=== PATIENT | female | born 1995 | race Caucasian/White ===

== ENCOUNTER 2018-09-29 16:58 | Emergency (ER) | payer SELFPAY ==
[2018-09-29] MEDS ORDERED: Azithromycin 250 MG Tab PO ONE (18:44)
[2018-09-29] MEDS ORDERED: Ketorolac 60 MG/2 ML SDV IM ONE (18:44)
[2018-09-29] MEDS ORDERED: cefTRIAXone 500 MG in Lidocaine 1% 1 ML IM ONE (18:44)
--- NOTE | 2018-09-29 18:55 | EDM.PDOC ---
ED HPI GENERAL MEDICAL PROBLEM - General Chief Complaint: Back Pain or Injury Stated Complaint: LOW BACK PAIN AND OTHER ISSUES Time Seen by Provider: 09/29/18 18:30 Source of Information: Reports: Patient History Limitations: Reports: No Limitations - History of Present Illness INITIAL COMMENTS - FREE TEXT/NARRATIVE: History of present illness: []Patient's had one week of brownish discharge, pelvic pain and pain with urination. She is unsure if she is . She denies any previous STDs. No fevers, chills, nausea, vomiting or diarrhea Review of systems: As per history of present illness and below otherwise all systems reviewed and negative. Past medical history: As per history of present illness and as reviewed below otherwise noncontributory. Surgical history: As per history of present illness and as reviewed below otherwise noncontributory. Social history: No reported history of drug or alcohol abuse. Family history: As per history of present illness and as reviewed below otherwise noncontributory. Physical exam: General: Well developed, well nourished in NAD HEENT: Atraumatic, normocephalic, pupils reactive, negative for conjunctival pallor or scleral icterus, mucous membranes moist, throat clear, neck supple, nontender, trachea midline. Lungs: Clear to auscultation, breath sounds equal bilaterally, chest nontender. Heart: S1S2, regular, negative for clicks, rubs, or JVD. Abdomen: NABS, Soft, nondistended, nontender. Negative for masses or hepatosplenomegaly. Negative for costovertebral tenderness. No vertebral tenderness to palpation on her lower spine Pelvis: Stable nontender. Genitourinary: mild amount of brownish discharge, severe cervical motion tenderness on exam Rectal: Deferred. Extremities: Atraumatic, negative for cords or calf pain. Neurovascular unremarkable. Neuro: Awake, alert, oriented. Cranial nerves II through XII unremarkable. Cerebellum unremarkable. Motor and sensory unremarkable throughout. Exam nonfocal. Skin:warm and dry Diagnostics: Urine, hCG, GC chlamydia and wet prep done Therapeutics: Toradol, ceftriaxone, Zithromax given ED Course: unremarkable Impression: PID Prescriptions: tramadol 50 mg, 16 tablets Plan: Follow with primary care or women's health clinic take meds as directed return if symptoms worsen or change. Definitive disposition and diagnosis as appropriate pending reevaluation and review of above. lower back Pain Score (Numeric/FACES): 8 - Related Data Allergies Allergy/AdvReac Type Severity Reaction Status Date / Time No Known Allergies Allergy Verified 09/29/18 17:49 Home Meds: Home Meds traMADol HCl [Tramadol HCl] 50 mg PO Q6H PRN #16 tablet 09/29/18 [Rx] Past Medical History - Past Health History Medical/Surgical History: Denies Medical/Surgical History Social & Family History - Family History Family Medical History: Noncontributory Oncologic: Reports: Bladder, Breast, Cervix - Tobacco Use Smoking Status *Q: Never Smoker Second Hand Smoke Exposure: No - Caffeine Use Caffeine Use: Reports: Coffee - Recreational Drug Use Recreational Drug Use: No ED ROS GENERAL - Review of Systems Review Of Systems: ROS reveals no pertinent complaints other than HPI. ED EXAM, RENAL/ - Physical Exam Exam: See Below (See history of present illness) Course - Vital Signs Last Recorded V/S: Last Vital Signs Temp 98.4 F 09/29/18 17:47 Pulse 68 09/29/18 17:47 Resp 16 09/29/18 17:47 BP 120/60 09/29/18 17:47 Pulse Ox 98 09/29/18 17:47 - Orders/Labs/Meds Orders: Active Orders 24 hr Category Date Time Status CHLAMYDIA AND GONORRHEA BY TMA Stat Lab 09/29/18 18:45 Received Labs: Laboratory Tests 09/29/18 09/29/18 09/29/18 Range/Units 17:53 17:53 18:45 Urine Color YELLOW Urine Appearance CLEAR Urine pH 5.5 (5.0-8.0) Ur Specific [place] >= 1.030 (1.001-1.035) Urine Protein NEGATIVE (NEGATIVE) mg/dL Urine Glucose (UA) NEGATIVE (NEGATIVE) mg/dL Urine Ketones TRACE H (NEGATIVE) mg/dL Urine Occult Blood NEGATIVE (NEGATIVE) Urine Nitrite NEGATIVE (NEGATIVE) Urine Bilirubin NEGATIVE (NEGATIVE) Urine Urobilinogen 0.2 (<2.0) EU/dL Ur Leukocyte Esterase NEGATIVE (NEGATIVE) Urine HCG, Qual NEGATIVE (NEGATIVE) Neena species DNA NEGATIVE (NEGATIVE) Gardnerella DNA Probe NEGATIVE (NEGATIVE) Trichomonas DNA Probe NEGATIVE (NEGATIVE) Meds: Medications Discontinued Medications Generic Name Dose Route Start Last Admin Trade Name Freq PRN Reason Stop Dose Admin Azithromycin 1,000 mg 09/29/18 18:44 09/29/18 18:58 Zithromax PO 09/29/18 18:45 1,000 mg Q24H ONE Administration Ceftriaxone Sodium 500 mg/ 1 mls @ 1 mls/sec 09/29/18 18:44 09/29/18 19:00 Lidocaine HCl IM 09/29/18 18:45 1 mls/sec ONETIME ONE Administration Ketorolac Tromethamine 60 mg 09/29/18 18:44 09/29/18 19:00 Toradol IM 09/29/18 18:45 60 mg ONETIME ONE Administration Departure - Departure Time of Disposition: 19:42 Disposition: Home, Self-Care 01 Condition: Good Clinical Impression: Pelvic inflammatory disease - Discharge Information *PRESCRIPTION DRUG MONITORING PROGRAM REVIEWED*: No *COPY OF PRESCRIPTION DRUG MONITORING REPORT IN PATIENT MAGDALENO: No Prescriptions: traMADol HCl [Tramadol HCl] 50 mg PO Q6H PRN #16 tablet PRN Reason: Pain Referrals: PCP,None [Primary Care Provider] - Forms: ED Department Discharge Additional Instructions: The following information is given to patients seen in the emergency department who are being discharged to home. This information is to outline your options for follow-up care. We provide all patients seen in our emergency department with a follow-up referral. The need for follow-up, as well as the timing and circumstances, are variable depending upon the specifics of your emergency department visit. If you don't have a primary care physician on staff, we will provide you with a referral. We always advise you to contact your personal physician following an emergency department visit to inform them of the circumstance of the visit and for follow-up with them and/or the need for any referrals to a consulting specialist. The emergency department will also refer you to a specialist when appropriate. This referral assures that you have the opportunity for follow-up care with a specialist. All of these measure are taken in an effort to provide you with optimal care, which includes your follow-up. Under all circumstances we always encourage you to contact your private physician who remains a resource for coordinating your care. When calling for follow-up care, please make the office aware that this follow-up is from your recent emergency room visit. If for any reason you are refused follow-up, please contact the [facility] Emergency Department at and asked to speak to the emergency department charge nurse. Take meds as directed, follow up with your primary care physician, return to ER if symptoms worsen or change. [facility] [address] [place] [id number] [facility] Primary Care - Women's Health [address] [place] [id number] - My Orders Last 24 Hours: My Active Orders 09/29/18 18:45 CHLAMYDIA AND GONORRHEA BY TMA Stat - Assessment/Plan Last 24 Hours: My Active Orders 09/29/18 18:45 CHLAMYDIA AND GONORRHEA BY TMA Stat
== END 2018-09-29 20:19 | disposition home or self-care (01) ==
LOC: MW.ED 16:58
DX: N73.9 Female pelvic inflammatory disease, unspecified (principal)
CPT/HCPCS: 81003; 81025; 87480; 87491; 87510; 87591; 87660; 96372; 99283; A9270; J0696; J1885; J2001

== ENCOUNTER 2019-06-20 15:51 | Emergency (ER) | payer OTHER ==
[2019-06-20] MEDS ORDERED: Sodium Chloride 0.9% 10 ML Syringe FLUSH PRN (15:56)
[2019-06-20] MEDS ORDERED: Sodium Chloride 0.9% 2.5 ML Syringe FLUSH PRN (15:56)
[2019-06-20] MEDS ORDERED: Sodium Chloride 0.9% 1,000 ML IV ONE (15:56)
--- NOTE | 2019-06-20 16:13 | EDM.PDOC ---
<Saba Keene - Last Filed: 06/20/19 19:38> ED HPI GENERAL MEDICAL PROBLEM - General Stated Complaint: VOMITING Time Seen by Provider: 06/20/19 16:13 - Related Data Allergies Allergy/AdvReac Type Severity Reaction Status Date / Time No Known Allergies Allergy Verified 06/20/19 16:08 Home Meds: Home Meds Diclofenac Sodium [Voltaren] 75 mg PO BIDMEALS PRN #20 tab.cr 06/20/19 [Rx] Ondansetron HCl [Zofran] 4 mg PO Q4HR #12 tablet 06/20/19 [Rx] Course - Vital Signs Last Recorded V/S: Last Vital Signs Temp 97.5 F 06/20/19 19:12 Pulse 82 06/20/19 19:54 Resp 16 06/20/19 19:54 BP 111/69 06/20/19 19:54 Pulse Ox 98 06/20/19 19:54 - Orders/Labs/Meds Orders: Active Orders 24 hr Category Date Time Status CHLAMYDIA AND GONORRHEA BY TMA Stat Lab 06/20/19 18:00 Received Saline Lock Insert [OM.PC] Stat Oth 06/20/19 15:56 Ordered Labs: Laboratory Tests 06/20/19 06/20/19 06/20/19 Range/Units 16:15 16:15 16:17 WBC 11.14 H (4.0-11.0) K/uL RBC 4.73 (4.30-5.90) M/uL Hgb 15.3 (12.0-16.0) g/dL Hct 43.9 (36.0-46.0) % MCV 92.8 (80.0-98.0) fL MCH 32.3 H (27.0-32.0) pg MCHC 34.9 (31.0-37.0) g/dL RDW Std Deviation 41.1 (28.0-62.0) fl RDW Coeff of Maykel 12 (11.0-15.0) % Plt Count 195 (150-400) K/uL MPV 10.80 (7.40-12.00) fL Neut % (Auto) 86.6 H (48.0-80.0) % Lymph % (Auto) 5.3 L (16.0-40.0) % [place] % (Auto) 7.5 (0.0-15.0) % Eos % (Auto) 0.5 (0.0-7.0) % Baso % (Auto) 0.1 (0.0-1.5) % Neut # (Auto) 9.6 H (1.4-5.7) K/uL Lymph # (Auto) 0.6 (0.6-2.4) K/uL [place] # (Auto) 0.8 (0.0-0.8) K/uL Eos # (Auto) 0.1 (0.0-0.7) K/uL Baso # (Auto) 0.0 (0.0-0.1) K/uL Nucleated RBC % 0.0 /100WBC Nucleated RBCs # 0 K/uL Sodium 139 (136-145) mmol/L Potassium 3.8 (3.5-5.1) mmol/L Chloride 104 (98-107) mmol/L Carbon Dioxide 21.1 (21.0-32.0) mmol/L BUN 14 (7.0-18.0) mg/dL Creatinine 0.6 (0.6-1.0) mg/dL Est Cr Clr Drug Dosing 139.38 mL/min Estimated GFR (MDRD) > 60.0 ml/min Glucose 91 (74-106) mg/dL Calcium 9.2 (8.5-10.1) mg/dL Total Bilirubin 0.6 (0.2-1.0) mg/dL AST 20 (15-37) IU/L ALT 17 (14-63) IU/L Alkaline Phosphatase 64 (46-116) U/L Total Protein 8.6 H (6.4-8.2) g/dL Albumin 4.4 (3.4-5.0) g/dL Globulin 4.2 H (2.6-4.0) g/dL Albumin/Globulin Ratio 1.1 (0.9-1.6) Lipase 110 (73-393) U/L Urine Color YELLOW Urine Appearance SLT CLOUDY Urine pH 5.5 (5.0-8.0) Ur Specific [place] >= 1.030 (1.001-1.035) Urine Protein NEGATIVE (NEGATIVE) mg/dL Urine Glucose (UA) NEGATIVE (NEGATIVE) mg/dL Urine Ketones >=80 (NEGATIVE) mg/dL Urine Occult Blood TRACE-INTACT H (NEGATIVE) Urine Nitrite NEGATIVE (NEGATIVE) Urine Bilirubin SMALL H (NEGATIVE) Urine Ictotest NEGATIVE Urine Urobilinogen 0.2 (<2.0) EU/dL Ur Leukocyte Esterase NEGATIVE (NEGATIVE) Urine RBC 0-3 (0-2/HPF) Urine WBC 0-3 (0-5/HPF) Ur Epithelial Cells OCCASIONAL (NONE-FEW) Urine Bacteria 3+ H (NEGATIVE) Urine Mucus MODERATE (NONE-MOD) Urine HCG, Qual (NEGATIVE) Neena species DNA (NEGATIVE) Gardnerella DNA Probe (NEGATIVE) Trichomonas DNA Probe (NEGATIVE) 06/20/19 06/20/19 Range/Units 16:17 18:00 WBC (4.0-11.0) K/uL RBC (4.30-5.90) M/uL Hgb (12.0-16.0) g/dL Hct (36.0-46.0) % MCV (80.0-98.0) fL MCH (27.0-32.0) pg MCHC (31.0-37.0) g/dL RDW Std Deviation (28.0-62.0) fl RDW Coeff of Maykel (11.0-15.0) % Plt Count (150-400) K/uL MPV (7.40-12.00) fL Neut % (Auto) (48.0-80.0) % Lymph % (Auto) (16.0-40.0) % [place] % (Auto) (0.0-15.0) % Eos % (Auto) (0.0-7.0) % Baso % (Auto) (0.0-1.5) % Neut # (Auto) (1.4-5.7) K/uL Lymph # (Auto) (0.6-2.4) K/uL [place] # (Auto) (0.0-0.8) K/uL Eos # (Auto) (0.0-0.7) K/uL Baso # (Auto) (0.0-0.1) K/uL Nucleated RBC % /100WBC Nucleated RBCs # K/uL Sodium (136-145) mmol/L Potassium (3.5-5.1) mmol/L Chloride (98-107) mmol/L Carbon Dioxide (21.0-32.0) mmol/L BUN (7.0-18.0) mg/dL Creatinine (0.6-1.0) mg/dL Est Cr Clr Drug Dosing mL/min Estimated GFR (MDRD) ml/min Glucose (74-106) mg/dL Calcium (8.5-10.1) mg/dL Total Bilirubin (0.2-1.0) mg/dL AST (15-37) IU/L ALT (14-63) IU/L Alkaline Phosphatase (46-116) U/L Total Protein (6.4-8.2) g/dL Albumin (3.4-5.0) g/dL Globulin (2.6-4.0) g/dL Albumin/Globulin Ratio (0.9-1.6) Lipase (73-393) U/L Urine Color Urine Appearance Urine pH (5.0-8.0) Ur Specific [place] (1.001-1.035) Urine Protein (NEGATIVE) mg/dL Urine Glucose (UA) (NEGATIVE) mg/dL Urine Ketones (NEGATIVE) mg/dL Urine Occult Blood (NEGATIVE) Urine Nitrite (NEGATIVE) Urine Bilirubin (NEGATIVE) Urine Ictotest Urine Urobilinogen (<2.0) EU/dL Ur Leukocyte Esterase (NEGATIVE) Urine RBC (0-2/HPF) Urine WBC (0-5/HPF) Ur Epithelial Cells (NONE-FEW) Urine Bacteria (NEGATIVE) Urine Mucus (NONE-MOD) Urine HCG, Qual NEGATIVE (NEGATIVE) Neena species DNA NEGATIVE (NEGATIVE) Gardnerella DNA Probe NEGATIVE (NEGATIVE) Trichomonas DNA Probe NEGATIVE (NEGATIVE) Meds: Medications Discontinued Medications Generic Name Dose Route Start Last Admin Trade Name Abdirahmanq PRN Reason Stop Dose Admin Azithromycin 1,000 mg 06/20/19 18:04 06/20/19 18:11 Zithromax PO 06/20/19 18:05 1,000 mg Q24H ONE Administration Sodium Chloride 1,000 mls @ 999 mls/hr 06/20/19 15:56 06/20/19 16:26 Normal Saline IV 06/20/19 16:56 999 mls/hr .Bolus ONE Administration Ceftriaxone Sodium/Dextrose 1 50 mls @ 100 mls/hr 06/20/19 18:04 06/20/19 18: 11 gm/ Premix IV 06/20/19 18:33 100 mls/hr ONETIME ONE Administration Ketorolac Tromethamine 30 mg 06/20/19 18:07 06/20/19 18:12 Toradol IVPUSH 06/20/19 18:08 30 mg ONETIME ONE Administration Ondansetron HCl 4 mg 06/20/19 16:18 06/20/19 16:26 Zofran IVPUSH 06/20/19 16:19 4 mg ONETIME ONE Administration Sodium Chloride 10 ml 06/20/19 15:56 06/20/19 16:26 Saline Flush FLUSH 10 ml ASDIRECTED PRN Administration Keep Vein Open Sodium Chloride 2.5 ml 06/20/19 15:56 06/20/19 16:26 Saline Flush FLUSH 2.5 ml ASDIRECTED PRN Administration Keep Vein Open Departure - Departure Time of Disposition: 19:38 Disposition: Home, Self-Care 01 Clinical Impression: PID (acute pelvic inflammatory disease) - Discharge Information Prescriptions: Ondansetron HCl [Zofran] 4 mg PO Q4HR #12 tablet Diclofenac Sodium [Voltaren] 75 mg PO BIDMEALS PRN #20 tab.cr PRN Reason: Pain Instructions: Pelvic Inflammatory Disease, [id number] Referrals: PCP,None [Primary Care Provider] - Forms: ED Department Discharge Additional Instructions: The following information is given to patients seen in the emergency department who are being discharged to home. This information is to outline your options for follow-up care. We provide all patients seen in our emergency department with a follow-up referral. The need for follow-up, as well as the timing and circumstances, are variable depending upon the specifics of your emergency department visit. If you don't have a primary care physician on staff, we will provide you with a referral. We always advise you to contact your personal physician following an emergency department visit to inform them of the circumstance of the visit and for follow-up with them and/or the need for any referrals to a consulting specialist. The emergency department will also refer you to a specialist when appropriate. This referral assures that you have the opportunity for follow-up care with a specialist. All of these measure are taken in an effort to provide you with optimal care, which includes your follow-up. Under all circumstances we always encourage you to contact your private physician who remains a resource for coordinating your care. When calling for follow-up care, please make the office aware that this follow-up is from your recent emergency room visit. If for any reason you are refused follow-up, please contact the [facility] Emergency Department at and asked to speak to the emergency department charge nurse. Take meds as directed, follow up with your primary care physician, return to ER if symptoms worsen or change. [facility] Primary Care - Women's Health [address] [place] [id number] - My Orders Last 24 Hours: My Active Orders 06/20/19 15:56 Saline Lock Insert [OM.PC] Stat 06/20/19 18:00 CHLAMYDIA AND GONORRHEA BY TMA Stat - Assessment/Plan Last 24 Hours: My Active Orders 06/20/19 15:56 Saline Lock Insert [OM.PC] Stat 06/20/19 18:00 CHLAMYDIA AND GONORRHEA BY TMA Stat <Neida Jerry - Last Filed: 06/21/19 07:23> ED HPI GENERAL MEDICAL PROBLEM - General Source of Information: Reports: Patient History Limitations: Reports: No Limitations - History of Present Illness INITIAL COMMENTS - FREE TEXT/NARRATIVE: History of present illness: []Patient complains of lower abdominal pain nausea and vomiting several times today. Emesis has a small amount of blood in it. Patient has had abnormal discharge and her last. She states had a lot of dark blood which was abnormal for her. She has had bacterial vaginosis in the past. Patient denies any fevers , chills or diarrhea. Review of systems: As per history of present illness and below otherwise all systems reviewed and negative. Past medical history: As per history of present illness and as reviewed below otherwise noncontributory. Surgical history: As per history of present illness and as reviewed below otherwise noncontributory. Social history: No reported history of drug or alcohol abuse. Family history: As per history of present illness and as reviewed below otherwise noncontributory. Physical exam: General: Well developed, well nourished in NAD HEENT: Atraumatic, normocephalic, pupils reactive, negative for conjunctival pallor or scleral icterus, mucous membranes moist, throat clear, neck supple, nontender, trachea midline. Lungs: Clear to auscultation, breath sounds equal bilaterally, chest nontender. Heart: S1S2, regular, negative for clicks, rubs, or JVD. Abdomen: NABS, Soft, nolower midline abdominal tenderness over her bladder no rebound or guardingNegative for masses or hepatosplenomegaly. Negative for costovertebral tenderness. Pelvis: Stable nontender. Genitourinary: severe cervical motion tenderness positive cervicitis on speculum exam with copious yellow-white discharge Rectal: Deferred. Extremities: Atraumatic, negative for cords or calf pain. Neurovascular unremarkable. Neuro: Awake, alert, oriented. Cranial nerves II through XII unremarkable. Cerebellum unremarkable. Motor and sensory unremarkable throughout. Exam nonfocal. Skin:warm and dry Diagnostics: CBC, chemistry, UA, hCG, GC chlamydia and wet prep Therapeutics: Toradol, Zofran, IV fluids and ceftriaxone, Zithromax ED Course: stable Impression: PID Prescriptions: zofran, diclofenac Plan: Take meds as directed, follow up with your primary care physician, return to ER if symptoms worsen or change. Definitive disposition and diagnosis as appropriate pending reevaluation and review of above. Pelvic Pain Score (Numeric/FACES): 8 Past Medical History - Past Health History Medical/Surgical History: Denies Medical/Surgical History Social & Family History - Family History Family Medical History: Noncontributory Oncologic: Reports: Bladder, Breast, Cervix - Caffeine Use Caffeine Use: Reports: Coffee ED ROS GENERAL - Review of Systems Review Of Systems: See Below ED EXAM, GI/ABD - Physical Exam Exam: See Below Course - Orders/Labs/Meds Labs: Laboratory Tests 06/20/19 06/20/19 06/20/19 Range/Units 16:15 16:15 16:17 WBC 11.14 H (4.0-11.0) K/uL RBC 4.73 (4.30-5.90) M/uL Hgb 15.3 (12.0-16.0) g/dL Hct 43.9 (36.0-46.0) % MCV 92.8 (80.0-98.0) fL MCH 32.3 H (27.0-32.0) pg MCHC 34.9 (31.0-37.0) g/dL RDW Std Deviation 41.1 (28.0-62.0) fl RDW Coeff of [place] 12 (11.0-15.0) % Plt Count 195 (150-400) K/uL MPV 10.80 (7.40-12.00) fL Neut % (Auto) 86.6 H (48.0-80.0) % Lymph % (Auto) 5.3 L (16.0-40.0) % [place] % (Auto) 7.5 (0.0-15.0) % Eos % (Auto) 0.5 (0.0-7.0) % Baso % (Auto) 0.1 (0.0-1.5) % Neut # (Auto) 9.6 H (1.4-5.7) K/uL Lymph # (Auto) 0.6 (0.6-2.4) K/uL [place] # (Auto) 0.8 (0.0-0.8) K/uL Eos # (Auto) 0.1 (0.0-0.7) K/uL Baso # (Auto) 0.0 (0.0-0.1) K/uL Nucleated RBC % 0.0 /100WBC Nucleated RBCs # 0 K/uL Sodium 139 (136-145) mmol/L Potassium 3.8 (3.5-5.1) mmol/L Chloride 104 (98-107) mmol/L Carbon Dioxide 21.1 (21.0-32.0) mmol/L BUN 14 (7.0-18.0) mg/dL Creatinine 0.6 (0.6-1.0) mg/dL Est Cr Clr Drug Dosing 139.38 mL/min Estimated GFR (MDRD) > 60.0 ml/min Glucose 91 (74-106) mg/dL Calcium 9.2 (8.5-10.1) mg/dL Total Bilirubin 0.6 (0.2-1.0) mg/dL AST 20 (15-37) IU/L ALT 17 (14-63) IU/L Alkaline Phosphatase 64 (46-116) U/L Total Protein 8.6 H (6.4-8.2) g/dL Albumin 4.4 (3.4-5.0) g/dL Globulin 4.2 H (2.6-4.0) g/dL Albumin/Globulin Ratio 1.1 (0.9-1.6) Lipase 110 (73-393) U/L Urine Color YELLOW Urine Appearance SLT CLOUDY Urine pH 5.5 (5.0-8.0) Ur Specific [place] >= 1.030 (1.001-1.035) Urine Protein NEGATIVE (NEGATIVE) mg/dL Urine Glucose (UA) NEGATIVE (NEGATIVE) mg/dL Urine Ketones >=80 (NEGATIVE) mg/dL Urine Occult Blood TRACE-INTACT H (NEGATIVE) Urine Nitrite NEGATIVE (NEGATIVE) Urine Bilirubin SMALL H (NEGATIVE) Urine Ictotest NEGATIVE Urine Urobilinogen 0.2 (<2.0) EU/dL Ur Leukocyte Esterase NEGATIVE (NEGATIVE) Urine RBC 0-3 (0-2/HPF) Urine WBC 0-3 (0-5/HPF) Ur Epithelial Cells OCCASIONAL (NONE-FEW) Urine Bacteria 3+ H (NEGATIVE) Urine Mucus MODERATE (NONE-MOD) Urine HCG, Qual (NEGATIVE) Neena species DNA (NEGATIVE) Gardnerella DNA Probe (NEGATIVE) Trichomonas DNA Probe (NEGATIVE) 06/20/19 06/20/19 Range/Units 16:17 18:00 WBC (4.0-11.0) K/uL RBC (4.30-5.90) M/uL Hgb (12.0-16.0) g/dL Hct (36.0-46.0) % MCV (80.0-98.0) fL MCH (27.0-32.0) pg MCHC (31.0-37.0) g/dL RDW Std Deviation (28.0-62.0) fl RDW Coeff of Maykel (11.0-15.0) % Plt Count (150-400) K/uL MPV (7.40-12.00) fL Neut % (Auto) (48.0-80.0) % Lymph % (Auto) (16.0-40.0) % [place] % (Auto) (0.0-15.0) % Eos % (Auto) (0.0-7.0) % Baso % (Auto) (0.0-1.5) % Neut # (Auto) (1.4-5.7) K/uL Lymph # (Auto) (0.6-2.4) K/uL [place] # (Auto) (0.0-0.8) K/uL Eos # (Auto) (0.0-0.7) K/uL Baso # (Auto) (0.0-0.1) K/uL Nucleated RBC % /100WBC Nucleated RBCs # K/uL Sodium (136-145) mmol/L Potassium (3.5-5.1) mmol/L Chloride (98-107) mmol/L Carbon Dioxide (21.0-32.0) mmol/L BUN (7.0-18.0) mg/dL Creatinine (0.6-1.0) mg/dL Est Cr Clr Drug Dosing mL/min Estimated GFR (MDRD) ml/min Glucose (74-106) mg/dL Calcium (8.5-10.1) mg/dL Total Bilirubin (0.2-1.0) mg/dL AST (15-37) IU/L ALT (14-63) IU/L Alkaline Phosphatase (46-116) U/L Total Protein (6.4-8.2) g/dL Albumin (3.4-5.0) g/dL Globulin (2.6-4.0) g/dL Albumin/Globulin Ratio (0.9-1.6) Lipase (73-393) U/L Urine Color Urine Appearance Urine pH (5.0-8.0) Ur Specific [place] (1.001-1.035) Urine Protein (NEGATIVE) mg/dL Urine Glucose (UA) (NEGATIVE) mg/dL Urine Ketones (NEGATIVE) mg/dL Urine Occult Blood (NEGATIVE) Urine Nitrite (NEGATIVE) Urine Bilirubin (NEGATIVE) Urine Ictotest Urine Urobilinogen (<2.0) EU/dL Ur Leukocyte Esterase (NEGATIVE) Urine RBC (0-2/HPF) Urine WBC (0-5/HPF) Ur Epithelial Cells (NONE-FEW) Urine Bacteria (NEGATIVE) Urine Mucus (NONE-MOD) Urine HCG, Qual NEGATIVE (NEGATIVE) Neena species DNA NEGATIVE (NEGATIVE) Gardnerella DNA Probe NEGATIVE (NEGATIVE) Trichomonas DNA Probe NEGATIVE (NEGATIVE) Departure - Departure Condition: Good - Discharge Information *PRESCRIPTION DRUG MONITORING PROGRAM REVIEWED*: Not Applicable *COPY OF PRESCRIPTION DRUG MONITORING REPORT IN PATIENT MAGDALENO: Not Applicable
[2019-06-20] MEDS ORDERED: Ondansetron 4 MG/2 ML SDV IVPUSH ONE (16:18)
[2019-06-20 17:18] LABS: BLOOD UREA NITROGEN,BUN 14 mg/dL (7.0-18.0); CARBON DIOXIDE,CO2 21.1 mmol/L (21.0-32.0); CHLORIDE,CL 104 mmol/L (98-107); GLUCOSE RANDOM 91 mg/dL (74-106); LIPASE 110 U/L (73-393); POTASSIUM,K 3.8 mmol/L (3.5-5.1); SODIUM,NA 139 mmol/L (136-145)
[2019-06-20] MEDS ORDERED: Azithromycin 250 MG Tab PO ONE (18:04)
[2019-06-20] MEDS ORDERED: cefTRIAXone 1 GM in Premix Bag 1 BAG IV ONE (18:04)
[2019-06-20] MEDS ORDERED: Ketorolac 30 MG/ML SDV IVPUSH ONE (18:07)
== END 2019-06-20 19:55 | disposition home or self-care (01) ==
LOC: MW.ED 15:51
DX: N73.9 Female pelvic inflammatory disease, unspecified (principal)
CPT/HCPCS: 80053; 81001; 81025; 83690; 85025; 87480; 87491; 87510; 87591; 87660; 96361; 96365; 96375; 99284; A9270; J0696; J1885; J2405; J7040; 99283

== ENCOUNTER 2020-02-13 20:22 | Emergency (ER) | payer SELFPAY ==
[2020-02-13] MEDS ORDERED: Lidocaine 1% PF 2 ML SDV INJECT ONE (20:52)
--- NOTE | 2020-02-13 20:52 | EDM.PDOC ---
ED HPI GENERAL MEDICAL PROBLEM - General Chief Complaint: Laceration Stated Complaint: RIGHT HAND INJURY Time Seen by Provider: 02/13/20 20:47 Source of Information: Reports: Patient History Limitations: Reports: No Limitations - History of Present Illness INITIAL COMMENTS - FREE TEXT/NARRATIVE: HISTORY AND PHYSICAL: History of present illness: Patient is a 24-year-old female who presents to the emergency room with complaints of a laceration across her palmar surface at the base of her second through fifth digits. She was attempting to open a bottle of wine when the bottle wave solder offbearer grazed across her palmar surface. Tetanus has been updated within the last 5 years. She offers no systemic complaints. Review of systems: As per history of present illness and below otherwise all systems reviewed and negative. Past medical history: As per history of present illness and as reviewed below otherwise noncontributory. Surgical history: As per history of present illness and as reviewed below otherwise noncontributory. Social history: See social history for further information Family history: As per history of present illness and as reviewed below otherwise noncon tributory. Physical exam: General: Well-developed and well-nourished 24-year-old female. Alert and oriented. Nontoxic-appearing and in no acute distress. Vital signs are stable and have been reviewed by me. HEENT: Atraumatic, normocephalic, pupils equal and reactive bilaterally, negative for conjunctival pallor or scleral icterus, mucous membranes moist, TMs normal bilaterally, throat clear, neck supple, nontender, trachea midline. No drooling or trismus noted. No meningeal signs. No hot potato voice noted. Lungs: Clear to auscultation, breath sounds equal bilaterally, chest nontender. Heart: S1S2, regular rate and rhythm without overt murmur Abdomen: Soft, nondistended, nontender. Skin: 0.5cm laceration across base of palmar surface of the 2nd and 5th digits. Superfical laceration across base of palmar surface of 3rd and 4th digits. Otherwise skin is intact, warm, dry. No lesions or rashes noted. Extremities: Atraumatic, moves all extremities per self without difficulty or deficits, negative for cords or calf pain. Neurovascular unremarkable. Neuro: Awake, alert, oriented. Cranial nerves II through XII unremarkable. Cerebellum unremarkable. Motor and sensory unremarkable throughout. Exam nonfocal. Notes: Area was prepped and prepared for suture repair of the 2nd and 5th digits, patient states that she cannot go through with injection of the lidocaine regardless of reassurance and discussing the procedure. Patient states she would like to apply bacitracin to keep a close eye on the site. Did offer Dermabond, she declines. The skin was thoroughly cleansed and irrigated. Signs and symptoms that would prompt her to return to the emergency room were reviewed and discussed. Follow-up and supportive care measures were reviewed and discussed. Voices understanding and is agreeable to plan of care. Denies any further questions or concerns at this time. Diagnostics: None Therapeutics: Lidocaine, bacitracin Prescription: None Impression: Laceration Plan: 1. Keep the area clean and dry, wash gently twice daily with mild soap and water. Continue to monitor for signs of infection. You can apply bacitracin ointment over the next 1 to 3 days, thereafter just keep dry and open to air. 2. Tylenol and/or ibuprofen as needed for pain management. 3. Please follow-up with your primary care provider as we discussed. Return to the ED as needed and as discussed. Definitive disposition and diagnosis as appropriate pending reevaluation and review of above. - Related Data Allergies Allergy/AdvReac Type Severity Reaction Status Date / Time No Known Allergies Allergy Verified 02/13/20 20:25 Home Meds: Home Meds . 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 ED EXAM, SKIN/RASH Exam: See Below (See dictation) Course - Vital Signs Last Recorded V/S: Last Vital Signs Temp 98.3 F 02/13/20 20:23 Pulse 99 02/13/20 20:23 Resp 16 06/29/20 20:23 BP 116/86 02/13/20 20:23 Pulse Ox 100 02/13/20 20:23 - Orders/Labs/Meds Meds: Medications Discontinued Medications Generic Name Dose Route Start Last Admin Trade Name Elyssa PRN Reason Stop Dose Admin Bacitracin 1 dose 02/13/20 20:56 02/13/20 21:00 Bacitracin Oint 1 Gm TOP 02/13/20 20:57 1 dose ONETIME ONE Administration Lidocaine HCl 2 ml 02/13/20 20:52 02/13/20 21:00 Xylocaine-Mpf 1% INJECT 02/13/20 20:53 Not Given ONETIME ONE Lidocaine HCl Confirm 02/13/20 20:53 02/13/20 21:00 Xylocaine-Mpf 1% Administered 02/13/20 20:54 Not Given Dose 5 ml .ROUTE .STK-MED ONE Departure - Departure Time of Disposition: 21:06 Disposition: Home, Self-Care 01 Clinical Impression: Laceration - Discharge Information Instructions: Laceration Care, Adult, [place] Referrals: PCP,None [Primary Care Provider] - Forms: ED Department Discharge Additional Instructions: The following information is given to patients seen in the emergency department who are being discharged to home. This information is to outline your options for follow-up care. We provide all patients seen in our emergency department with a follow-up referral. The need for follow-up, as well as the timing and circumstances, are variable depending upon the specifics of your emergency department visit. If you don't have a primary care physician on staff, we will provide you with a referral. We always advise you to contact your personal physician following an emergency department visit to inform them of the circumstance of the visit and for follow-up with them and/or the need for any referrals to a consulting specialist. The emergency department will also refer you to a specialist when appropriate. This referral assures that you have the opportunity for follow-up care with a specialist. All of these measure are taken in an effort to provide you with optimal care, which includes your follow-up. Under all circumstances we always encourage you to contact your private physician who remains a resource for coordinating your care. When calling for follow-up care, please make the office aware that this follow-up is from your r ecent emergency room visit. If for any reason you are refused follow-up, please contact the [facility] Emergency Department at and asked to speak to the emergency department charge nurse. [facility] [address] [place] [address] [id number] 1. Keep the area clean and dry, wash gently twice daily with mild soap and water. Continue to monitor for signs of infection. You can apply bacitracin ointment over the next 1 to 3 days, thereafter just keep dry and open to air. 2. Tylenol and/or ibuprofen as needed for pain management. 3. Please follow-up with your primary care provider as we discussed. Return to the ED as needed and as discussed. Sepsis Event Note (ED) - Evaluation Sepsis Screening Result: No Definite Risk - Focused Exam Vital Signs: Vital Signs Temp Pulse Resp BP Pulse Ox 02/13/20 20:23 98.3 F 99 16 116/86 100
[2020-02-13] MEDS ORDERED: Bacitracin Oint 1 GM U/D Packet TOP ONE (20:56)
== END 2020-02-13 21:20 | disposition home or self-care (01) ==
LOC: MW.ED 20:22
DX: S61.412A Laceration without foreign body of left hand, initial encounter (principal); W22.8XXA Striking against or struck by other objects, initial encounter
CPT/HCPCS: 99282

== ENCOUNTER 2021-02-04 11:15 | Emergency (ER) | payer SELFPAY ==
--- NOTE | 2021-02-04 13:20 | US ---
INDICATION: Bleeding x3 days evaluate for ectopic TECHNIQUE: Ultrasound pelvis transvaginal for better assessment or to better visualize the endometrium. Real-time sonographic images with spectral and color Doppler imaging of the ovaries were obtained. COMPARISON: None FINDINGS: Uterus: 9.4 x 4.7 x 4.9 cm. Normal echotexture of the myometrium. No masses. Endometrium: Transvaginal imaging was performed to better evaluate the endometrium. Endometrial thickness measures 8 mm. No sign of endometrial mass or fluid. No evidence of gestational sac or pole at this time. Right ovary measures 2.1 x 1.8 x 2.6 cm and left ovary measures 1.4 x 2.0 x 2.1 cm. No ovarian or adnexal masses. Normal arterial and venous blood flow is demonstrated in both ovaries. Cul-de-sac: Trace free fluid. IMPRESSION: No evidence of intrauterine gestation or pole at this time. Mild nonspecific thickening of the endometrium. At this time a normal versus ectopic cannot be entirely excluded and continued follow-up with serial quantitative beta HCG and ultrasound is recommended. Dictated by Earl Clark MD @ 02/04/2021 1:19:[address] aErl Clark @ Feb 04 2021 1:19PM
[2021-02-04 14:02] LABS: BLOOD UREA NITROGEN,BUN 8 mg/dL (7.0-18.0); CARBON DIOXIDE,CO2 27.1 mmol/L (21.0-32.0); CHLORIDE,CL 106 mmol/L (98-107); GLUCOSE RANDOM 92 mg/dL (74-106); POTASSIUM,K 4.5 mmol/L (3.5-5.1); SODIUM,NA 141 mmol/L (136-145)
--- NOTE | 2021-02-04 15:01 | EDM.PDOC ---
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 The patient states that she took a home test last night and then this morning she started soon as vaginal spotting and some lower back pain. She states that her pain is currently an 8 out of 10 and is a throbbing lower back pain. She denies any urine incontinence, bowel incontinence or saddle anesthesia. She states she does not have a history of ectopic or prior miscarriage. She does not know how far along is as this was unexpected. She denies any other symptoms chest pain, shortness of breath, abdominal pain, nausea or vomiting. She denies any other symptoms. REVIEW OF SYSTEMS: Constitutional: Denies fever, chills. Eyes: Denies eye pain Ears, Nose, Mouth, & Throat: Denies earache Cardiovascular: Denies chest pain Respiratory: Denies shortness of breath Gastrointestinal: Denies Nausea, vomiting, diarrhea, hematochezia. Genitourinary: Positive for vaginal bleeding. Denies hematuria, dysuria Skin:Denies a rash MSK: Positive for lower back pain neurological: Denies blurred vision Psychiatric: Denies depression PAST MEDICAL HISTORY: As per history of present illness and as reviewed below otherwise noncontributory. SURGICAL HISTORY: As per history of present illness and as reviewed below otherwise noncontributory. SOCIAL HISTORY: As per history of present illness and as reviewed below otherwise noncontributory. FAMILY HISTORY: As per history of present illness and as reviewed below otherwise noncontributory. EXAMINATION OF ORGAN SYSTEMS/BODY AREAS: Constitutional: Blood pressure was 132/54, heart 72, respiratory rate 16 with an oxygen saturation of 100% on room air. Temperature 36.2 General: Overall well-appearing woman who is in no acute distress Psychiatric: Appropriate mood and affect. Eyes: No scleral icterus or conjunctival erythema ENMT: Moist mucous membranes. No pharyngeal erythema Cardiovascular: Regular, rate, and rhythm. No gallops, murmurs, or rubs. Bilateral upper extremity pulses symmetric and intact. No peripheral edema. No JVD. Respiratory: Lungs clear to auscultation bilaterally. No wheezes, rales, or rhonchi. Gastrointestinal: Soft, non-tender, non-distended. Normoactive bowel sounds Genitourinary: No suprapubic tenderness no CVA tenderness Musculoskeletal: Normal range of motion. Skin: No lesions or abrasions. Neurological: Alert, GCS 15 MEDICAL DECISION MAKING AND COURSE IN THE ED WITH INTERPRETATION/REVIEW OF DIAGNOSTIC STUDIES: This is a 25-year-old woman without any significant past medical history who presents to the emergency department with vaginal bleeding new onset . At this time my concern is a type . Patient's vitals are normal. I did perform a bedside transabdominal OB ultrasound at this time uterus appeared normal without any gestational sac, yolk sac. There is no evidence of free fluid in the abdomen. We will obtain CBC, BMP, type and screen, quantitative hCG and urinalysis. Will obtain a transvaginal ultrasound. I did offer pain medication at this time. The patient states that she is driving. Therefore I did offer her Tylenol however she did not want it at this time. Laboratory: CBC reveals no abnormalities. BMP is unremarkable. Quantitative hCG is 216 urine hCG is positive. Type and screen reveals O negative blood type Urinalysis was a clean catch and was negative for leukocyte esterase, negative for nitrites, and trace for blood. Interpretation: Negative. The radiological images were viewed by myself along with reading the report from the radiologist. Transvaginal OB ultrasound reveals no evidence of intrauterine gestation or pole at this time there is mild thickening of the endometrium. Ectopic cannot be ruled out. After imaging I did discuss the results with the patient. Given that her reba titative hCG is so low this could have represented a miscarriage however the concern is still ectopic or of unknown location. I did discuss repeat hCG in 2 days and follow-up with tetryl screen operator. I discussed that if she had any worsening abdominal pain, bleeding she needs to return to the emergency department immediately. She was amenable to discharge and she had not further questions. DISPOSITION: The patient was discharged home in stable condition. The patient will follow up with OB in two days CONDITION: Fair PROCEDURES: None FINAL IMPRESSION(S)/DIAGNOSES: 1. Acute vaginal bleeding in 2.. of unknown location David Corona M.D. Lower Back Pain Score (Numeric/FACES): 8 - Related Data Allergies Allergy/AdvReac Type Severity Reaction Status Date / Time No Known Allergies Allergy Verified 02/04/21 11:42 Home Meds: Home Meds . 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: - Infectious Disease History Infectious Disease History: Reports: None Social & Family History - Family History Family Medical History: No Pertinent Family History Oncologic: Reports: Bladder, Breast, Cervix - Tobacco Use Tobacco Use Status *Q: Never Tobacco User - Caffeine Use Caffeine Use: Reports: None - Recreational Drug Use Recreational Drug Use: No ED ROS GENERAL - Review of Systems Review Of Systems: See Below ED EXAM, GENERAL - Physical Exam Exam: See Below Course - Vital Signs Last Recorded V/S: Last Vital Signs Temp 36.2 C 02/04/21 11:42 Pulse 60 02/04/21 15:28 Resp 16 02/04/21 15:28 BP 118/71 02/04/21 15:28 Pulse Ox 98 02/04/21 15:28 - Orders/Labs/Meds Labs: Laboratory Tests 02/04/21 02/04/21 02/04/21 Range/Units 11:45 11:45 13:00 WBC 4.54 (4.0-11.0) K/uL RBC 4.21 L (4.30-5.90) M/uL Hgb 13.6 (12.0-16.0) g/dL Hct 41.3 (36.0-46.0) % MCV 98.1 H (80.0-98.0) fL MCH 32.3 H (27.0-32.0) pg MCHC 32.9 (31.0-37.0) g/dL RDW Std Deviation 44.9 (28.0-62.0) fl RDW Coeff of Maykel 13 (11.0-15.0) % Plt Count 230 (150-400) K/uL MPV 10.70 (7.40-12.00) fL Neut % (Auto) 66.6 (48.0-80.0) % Lymph % (Auto) 23.3 (16.0-40.0) % [place] % (Auto) 7.9 (0.0-15.0) % Eos % (Auto) 1.8 (0.0-7.0) % Baso % (Auto) 0.4 (0.0-1.5) % Neut # (Auto) 3.0 (1.4-5.7) K/uL Lymph # (Auto) 1.1 (0.6-2.4) K/uL [place] # (Auto) 0.4 (0.0-0.8) K/uL Eos # (Auto) 0.1 (0.0-0.7) K/uL Baso # (Auto) 0.0 (0.0-0.1) K/uL Nucleated RBC % 0.0 /100WBC Nucleated RBCs # 0 K/uL Sodium (136-145) mmol/L Potassium (3.5-5.1) mmol/L Chloride (98-107) mmol/L Carbon Dioxide (21.0-32.0) mmol/L BUN (7.0-18.0) mg/dL Creatinine (0.6-1.0) mg/dL Est Cr Clr Drug Dosing mL/min Estimated GFR (MDRD) ml/min Glucose (74-106) mg/dL Calcium (8.5-10.1) mg/dL HCG, Quant mIU/mL Urine Color STRAW Urine Appearance CLEAR Urine pH 7.5 (5.0-8.0) Ur Specific [place] 1.010 (1.001-1.035) Urine Protein NEGATIVE (NEGATIVE) mg/dL Urine Glucose (UA) NEGATIVE (NEGATIVE) mg/dL Urine Ketones NEGATIVE (NEGATIVE) mg/dL Urine Occult Blood TRACE-INTACT H (NEGATIVE) Urine Nitrite NEGATIVE (NEGATIVE) Urine Bilirubin NEGATIVE (NEGATIVE) Urine Urobilinogen 0.2 (<2.0) EU/dL Ur Leukocyte Esterase NEGATIVE (NEGATIVE) Urine RBC 0-2 (0-2/HPF) Urine WBC 0-1 (0-5/HPF) Ur Epithelial Cells OCCASIONAL (NONE-FEW) Urine Bacteria NOT SEEN (NEGATIVE) Urine HCG, Qual POSITIVE (NEGATIVE) Blood Type Antibody Screen 02/04/21 02/04/21 Range/Units 13:00 13:30 WBC (4.0-11.0) K/uL RBC (4.30-5.90) M/uL Hgb (12.0-16.0) g/dL Hct (36.0-46.0) % MCV (80.0-98.0) fL MCH (27.0-32.0) pg MCHC (31.0-37.0) g/dL RDW Std Deviation (28.0-62.0) fl RDW Coeff of Maykel (11.0-15.0) % Plt Count (150-400) K/uL MPV (7.40-12.00) fL Neut % (Auto) (48.0-80.0) % Lymph % (Auto) (16.0-40.0) % [place] % (Auto) (0.0-15.0) % Eos % (Auto) (0.0-7.0) % Baso % (Auto) (0.0-1.5) % Neut # (Auto) (1.4-5.7) K/uL Lymph # (Auto) (0.6-2.4) K/uL [place] # (Auto) (0.0-0.8) K/uL Eos # (Auto) (0.0-0.7) K/uL Baso # (Auto) (0.0-0.1) K/uL Nucleated RBC % /100WBC Nucleated RBCs # K/uL Sodium 141 (136-145) mmol/L Potassium 4.5 (3.5-5.1) mmol/L Chloride 106 (98-107) mmol/L Carbon Dioxide 27.1 (21.0-32.0) mmol/L BUN 8 (7.0-18.0) mg/dL Creatinine 0.7 (0.6-1.0) mg/dL Est Cr Clr Drug Dosing 118.43 mL/min Estimated GFR (MDRD) > 60.0 ml/min Glucose 92 (74-106) mg/dL Calcium 8.7 (8.5-10.1) mg/dL HCG, Quant 216.0 mIU/mL Urine Color Urine Appearance Urine pH (5.0-8.0) Ur Specific [place] (1.001-1.035) Urine Protein (NEGATIVE) mg/dL Urine Glucose (UA) (NEGATIVE) mg/dL Urine Ketones (NEGATIVE) mg/dL Urine Occult Blood (NEGATIVE) Urine Nitrite (NEGATIVE) Urine Bilirubin (NEGATIVE) Urine Urobilinogen (<2.0) EU/dL Ur Leukocyte Esterase (NEGATIVE) Urine RBC (0-2/HPF) Urine WBC (0-5/HPF) Ur Epithelial Cells (NONE-FEW) Urine Bacteria (NEGATIVE) Urine HCG, Qual (NEGATIVE) Blood Type O NEGATIVE Antibody Screen NEGATIVE Departure - Departure Time of Disposition: 14:59 Disposition: Home, Self-Care 01 Condition: Fair Clinical Impression: Vaginal bleeding affecting early - Discharge Information *PRESCRIPTION DRUG MONITORING PROGRAM REVIEWED*: No *COPY OF PRESCRIPTION DRUG MONITORING REPORT IN PATIENT MAGDALENO: No Instructions: Vaginal Bleeding During , First Trimester Referrals: PCP,None [Primary Care Provider] - Forms: ED Department Discharge Additional Instructions: You evaluate today on an emergent basis. At this time it is uncertain as to where your is. Your hormone level was mildly elevated. At this time I did discuss with you that she needed to repeat the hCG level in 2 days for further evaluation. This can be done at the OB office or in the emergency department. As discussed this could be early , ectopic or a completed miscarriage. It is uncertain at this time as your ultrasound did not reveal any obvious intrauterine . If you have any worsening bleeding or plain please return to the emergency department. [facility] [address] [place] [id number] [facility] [address] [place] [id number] The patient is informed of any results of their evaluation and diagnostic workup and all questions are answered. They are given discharge instructions and return precautions. The patient is stable for discharge. The patient states they understand and agree with the plan and that they will return if their symptoms get worse or if they have any new concerns. The following information is given to patients seen in the emergency department who are being discharged to home. This information is to outline your options for follow-up care. We provide all patients seen in our emergency department with a follow-up referral. The need for follow-up, as well as the timing and circumstances, are variable depending upon the specifics of your emergency department visit. If you don't have a primary care physician on staff, we will provide you with a referral. We always advise you to contact your personal physician following an emergency department visit to inform them of the circumstance of the visit and for follow-up with them and/or the need for any referrals to a consulting specialist. The emergency department will also refer you to a specialist when appropriate. This referral assures that you have the opportunity for follow-up care with a specialist. All of these measure are taken in an effort to provide you with optimal care, which includes your follow-up. Under all circumstances we always encourage you to contact your private physician who remains a resource for coordinating your care. When calling for follow-up care, please make the office aware that this follow-up is from your recent emergency room visit. If for any reason you are refused follow-up, please contact the [facility] Emergency Department at and asked to speak to the emergency department charge nurse. Sepsis Event Note (ED) - Evaluation Sepsis Screening Result: No Definite Risk
== END 2021-02-04 15:32 | disposition home or self-care (01) ==
LOC: MW.ED 11:15
DX: O20.9 Hemorrhage in early pregnancy, unspecified (principal); Z3A.00 Weeks of gestation of pregnancy not specified
CPT/HCPCS: 36415; 76817; 76817-26; 80048; 81001; 81025; 84702; 85025; 86850; 86900; 86901; 99283; 99284-25; J2790

== ENCOUNTER 2021-12-22 03:36 | Inpatient (IN) | payer MEDICAID ==
[2021-12-22] MEDS ORDERED: Misoprostol 200 MCG Tab PO PRN (04:48)
[2021-12-22] MEDS ORDERED: Methylergonovine 0.2 MG/1 ML Amp IM PRN (04:48)
[2021-12-22] MEDS ORDERED: Butorphanol 1 MG/ML SDV IVPUSH PRN (04:48)
[2021-12-22] MEDS ORDERED: Carboprost Tromethamine 250 MCG/1 ML Amp IM PRN (04:48)
[2021-12-22] MEDS ORDERED: Terbutaline 1 MG/ML SDV SUBCUT PRN (04:48)
[2021-12-22] MEDS ORDERED: Tranexamic Acid 1,000 MG in Sodium Chloride 0.9% 100 ML IV PRN (04:48)
[2021-12-22] MEDS ORDERED: Water For Irrigation,Sterile 1,000 ML Container IRR PRN (04:48)
[2021-12-22] MEDS ORDERED: Sodium Chloride 0.9% 20 ML SDV IV PRN (04:48)
[2021-12-22] MEDS ORDERED: Ampicillin 2 GM in Sodium Chloride 0.9% 100 ML IV ONE (04:48)
[2021-12-22] MEDS ORDERED: Sodium Chloride 0.9% 2.5 ML Syringe FLUSH PRN (04:48)
[2021-12-22] MEDS ORDERED: Lidocaine 1% 50 ML MDV INJECT PRN (04:48)
[2021-12-22] MEDS ORDERED: Sodium Chloride 0.9% 10 ML Syringe FLUSH PRN (04:48)
[2021-12-22] MEDS ORDERED: Oxytocin/0.9 % Sodium Chloride 30 UNIT/500 ML BAG IV SCH ×2 (05:00)
[2021-12-22] MEDS: Lactated Ringers 1,000 ML IV SCH ×2 (05:30→10:00)
[2021-12-22] MEDS ORDERED: ePHEDrine 50 MG/ML SDV IVPUSH PRN ×2 (08:59)
[2021-12-22] MEDS ORDERED: Ropivacaine 200 MG in Premix Bag 1 BAG EPIDUR SCH (09:00)
[2021-12-22] MEDS: Ampicillin 1 GM in Sodium Chloride 0.9% 50 ML IV SCH ×2 (09:20→13:19)
[2021-12-22] MEDS ORDERED: Lanolin 100% Cream 7 GM Tube TOP PRN (15:01)
[2021-12-22] MEDS ORDERED: Docusate Sodium 100 MG Cap PO PRN (15:01)
[2021-12-22] MEDS ORDERED: Ibuprofen 400 MG Tab PO PRN (15:01)
[2021-12-22] MEDS ORDERED: Witch Hazel Medicated Pads 40/Jar TOP PRN (15:01)
[2021-12-22] MEDS ORDERED: Acetaminophen 500 MG Tab PO PRN (15:01)
[2021-12-22] MEDS ORDERED: Bisacodyl 10 MG Supp RECTAL PRN (15:01)
[2021-12-22] MEDS ORDERED: Benzocaine/Menthol 20%-0.5% Spray 78 GM Cannister TOP PRN (15:01)
[2021-12-22] MEDS: Ibuprofen 800 MG Tab PO PRN (17:59)
[2021-12-22] MEDS: Acetaminophen 500 MG Tab PO PRN (20:46)
[2021-12-23] MEDS: Ibuprofen 800 MG Tab PO PRN (02:17)
[2021-12-23] MEDS: Acetaminophen 500 MG Tab PO PRN (05:37)
== END 2021-12-24 13:04 | disposition home or self-care (01) | DRG 807 ==
LOC: MW.OBCHECK 03:36 → MW.OB 03:37 → MW.OBCHECK 04:48 → MW.OB 04:48 → OBSVTOIN 15:02 → MW.OB 12-23 02:55
PROVIDERS: ADMIT Obstetrics & Gynecology Obstetrics; ATTEND Obstetrics & Gynecology Obstetrics
PROC: 10E0XZZ Delivery of Products of Conception, External Approach (ICD-10-PCS; principal; 2021-12-22)
PROC: 3E0R3BZ Introduction of Anesthetic Agent into Spinal Canal, Percutaneous Approach (ICD-10-PCS; 2021-12-22)
PROC: 00HU33Z Insertion of Infusion Device into Spinal Canal, Percutaneous Approach (ICD-10-PCS; 2021-12-22)
DX: O42.02 Full-term premature rupture of membranes, onset of labor within 24 hours of rupture (principal); Z37.0 Single live birth; O99.824 Streptococcus B carrier state complicating childbirth; O26.893 Other specified pregnancy related conditions, third trimester; O77.0 Labor and delivery complicated by meconium in amniotic fluid; O69.81X0 Labor and delivery complicated by cord around neck, without compression, not applicable or unspecified; Z20.822 Contact with and (suspected) exposure to COVID-19; Z67.91 Unspecified blood type, Rh negative; Z91.018 Allergy to other foods; Z87.440 Personal history of urinary (tract) infections; Z3A.39 39 weeks gestation of pregnancy
CPT/HCPCS: 01967; 36415; 51701; 59025; 59409; 84112; 85014; 85018; 85027; 86592; 86850; 86900; 86901; A9270-GY; J0290; J0595; J2590; J7120; U0002

== ENCOUNTER 2021-12-30 09:02 | Emergency (ER) | payer MEDICAID ==
[2021-12-30] MEDS ORDERED: Sodium Chloride 0.9% 2.5 ML Syringe FLUSH PRN (09:15)
[2021-12-30] MEDS ORDERED: fentaNYL 50 MCG/ML SDV IVPUSH ONE (09:15)
[2021-12-30] MEDS ORDERED: Sodium Chloride 0.9% 1,000 ML IV ONE (09:15)
[2021-12-30] MEDS ORDERED: Sodium Chloride 0.9% 10 ML Syringe FLUSH PRN (09:15)
[2021-12-30] MEDS ORDERED: Ondansetron 4 MG/2 ML SDV IVPUSH ONE (09:15)
[2021-12-30 09:54] LABS: BLOOD UREA NITROGEN,BUN 9 mg/dL (7.0-18.0); CARBON DIOXIDE,CO2 25.8 mmol/L (21.0-32.0); CHLORIDE,CL 105 mmol/L (98-107); GLUCOSE RANDOM 70 mg/dL (74-106); POTASSIUM,K 3.8 mmol/L (3.5-5.1); SODIUM,NA 138 mmol/L (136-145)
[2021-12-30] MEDS ORDERED: Ketorolac 30 MG/ML SDV IVPUSH ONE (11:12)
== END 2021-12-30 11:40 | disposition home or self-care (01) ==
LOC: MW.ED 09:02
DX: O72.1 Other immediate postpartum hemorrhage (principal); Z91.018 Allergy to other foods
CPT/HCPCS: 36415; 76857; 80053; 84702; 85025; 86850; 86900; 86901; 96374; 96375; 99284; J1885; J2405; J3010; J3490; J7030

== ENCOUNTER 2022-02-09 00:59 | Emergency (ER) | payer MEDICAID ==
[2022-02-09 01:39] LABS: CARBON DIOXIDE,CO2 21.8 mmol/L (21.0-32.0); POTASSIUM,K 3.7 mmol/L (3.5-5.1)
[2022-02-09] MEDS ORDERED: Ondansetron 4 MG/2 ML SDV IVPUSH ONE (01:51)
[2022-02-09] MEDS ORDERED: Sodium Chloride 0.9% 1,000 ML IV STA (01:53)
[2022-02-09] MEDS ORDERED: Sodium Chloride 0.9% 1,000 ML IV SCH (02:00)
== END 2022-02-09 02:35 | disposition home or self-care (01) ==
LOC: MW.ED 00:59
DX: F10.129 Alcohol abuse with intoxication, unspecified (principal); Z91.018 Allergy to other foods; Y90.8 Blood alcohol level of 240 mg/100 ml or more
CPT/HCPCS: 36415; 80053; 80307; 84703; 85025; 96374; 99284; J2405; J7030

== ENCOUNTER 2022-09-15 18:08 | Emergency (ER) | payer BC, MEDICAID ==
[2022-09-15 19:49] LABS: CARBON DIOXIDE,CO2 25.4 mmol/L (21.0-32.0); POTASSIUM,K 3.5 mmol/L (3.5-5.1)
[2022-09-15] MEDS ORDERED: Ketorolac 30 MG/ML SDV IM ONE (20:09)
[2022-09-15 21:14] LABS: C. TRACHOMATIS BY PCR NOT DETECTED; N. GONORRHOEAE BY PCR NOT DETECTED
[2022-09-15] MEDS ORDERED: Nitrofurantoin Monohydrate/Macrocrystalline 100 MG Cap PO ONE (21:22)
[2022-09-15] MEDS ORDERED: Fluconazole 150 MG Tab PO ONE (21:25)
== END 2022-09-15 21:58 | disposition home or self-care (01) ==
LOC: MW.ED 18:08
DX: B37.31 Acute candidiasis of vulva and vagina (principal); N39.0 Urinary tract infection, site not specified; N94.0 Mittelschmerz; Z91.018 Allergy to other foods
CPT/HCPCS: 36415; 76830; 80053; 81001; 81025; 85025; 87086; 87480; 87491; 87510; 87591; 87660; 96372; 99284; A9270; J1885